=== PATIENT | male | born 1945 | race African-American/Black ===

== ENCOUNTER → 2018-12-30 | Emergency (ER) | payer OTHER ==
[~2018-12-30] VITALS: Ht 180.3 cm; Wt 108.9 kg
[~2018-12-30] MED LIST: AMIODARONE HCL (50 MG/ ML) 3 ML VIAL IV ONE; ATROPINE SULF 1 MG/10ml SYR IV ONE; CALCIUM CHLOR(10%) 100MG/ML 10ML SYRINGE IV ONE; EPINEPHrine HCL 1 MG/10 ML SYRG IV ONE; SODIUM BICARBONATE 8.4% INJ 50ML SYRINGE IV ONE
== END | disposition expired ==
LOC: EDBD 21:45 → ER 22:01 → EDBD 22:01
DX: I46.9 Cardiac arrest, cause unspecified (principal); E11.9 Type 2 diabetes mellitus without complications; E78.5 Hyperlipidemia, unspecified; I10 Essential (primary) hypertension; I25.2 Old myocardial infarction
CPT/HCPCS: 31500; 92950; 99285; J0171; J0282; 94002